=== PATIENT | male | born 1975 | race Caucasian/White ===

== ENCOUNTER 2018-11-08 08:56 | Emergency (ER) | payer SELFPAY ==
[~2018-11-08] VITALS: Ht 165.1 cm; Wt 85.0 kg
[2018-11-08 09:01] VITALS: BP 141/94
--- NOTE | 2018-11-08 09:08 | NUR ---
Patient ambulated to bed 9. RN evaluating patient at bedside.
--- NOTE | 2018-11-08 09:13 | NUR ---
Dr. Garcia evaluating patient at bedside.
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
--- NOTE | 2018-11-08 09:21 | NUR ---
pt left for x-ray per tech via wheelchair.
--- NOTE | 2018-11-08 10:01 | NUR ---
Patient discharged with v/s stable. Written and verbal after care instructions given and explained. Patient verbalized understanding. Ambulatory with steady gait. All questions addressed prior to discharge. Advised to follow up with PMD.
== END 2018-11-08 10:00 | disposition home or self-care (01) ==
LOC: MED 08:56
DX: M79.671 Pain in right foot (principal); R03.0 Elevated blood-pressure reading, without diagnosis of hypertension; F17.210 Nicotine dependence, cigarettes, uncomplicated; Z71.6 Tobacco abuse counseling; X50.1XXA Overexertion from prolonged static or awkward postures, initial encounter; Y93.02 Activity, running; Y92.89 Other specified places as the place of occurrence of the external cause; Y99.8 Other external cause status
CPT/HCPCS: 73630; 99283

== ENCOUNTER 2020-03-08 08:57 | Emergency (ER) | payer SELFPAY ==
[~2020-03-08] VITALS: Ht 165.1 cm; Wt 81.6 kg
--- NOTE | 2020-03-08 08:59 | NUR ---
Patient ambulated to bed 7
[2020-03-08 09:00] VITALS: BP 159/101
--- NOTE | 2020-03-08 09:05 | NUR ---
c/o unable to retract foreskin back to normal ---
--- NOTE | 2020-03-08 09:24 | NUR ---
at bedside with pt
[2020-03-08 10:00] LABS: ANION GAP 11.5 (8-16); CARBON DIOXIDE 29.5 mmol/L (21-32); CREATININE 0.8 mg/dL (0.6-1.3)
[2020-03-08 10:23] VITALS: BP 145/94
--- NOTE | 2020-03-08 10:23 | NUR ---
Patient discharged with v/s stable. Written and verbal after care instructions given and explained. Patient alert, oriented and verbalized understanding of instructions. Ambulatory with to car. All questions addressed prior to discharge. ID band removed. Patient advised to follow up with PMD. Rx of metformin, bacitracin, clotrimazole given. Patient educated on indication of medication including possible reaction and side effects. Opportunity to ask questions provided and answered.
[2020-03-08 10:53] LABS: APPEARANCE,URINE CLEAR (CLEAR); BILIRUBIN,URINE NEGATIVE (NEGATIVE); BLOOD, URINE TRACE-I (NEGATIVE); COLOR,URINE YELLOW (YELLOW); LEUKOCYTE ESTERASE ,URINE NEGATIVE (NEGATIVE); NITRITE, URINE NEGATIVE (NEGATIVE); UGLUCOSE 3+ (NEGATIVE)
[2020-03-08 11:04] LABS: RBC,URINE 0-5 /HPF (0-5); WBC,URINE 0-5 /HPF (0-5)
== END 2020-03-08 10:23 | disposition home or self-care (01) ==
LOC: MED 08:57
DX: R60.0 Localized edema (principal); N47.7 Other inflammatory diseases of prepuce; E11.65 Type 2 diabetes mellitus with hyperglycemia; R20.2 Paresthesia of skin; R03.0 Elevated blood-pressure reading, without diagnosis of hypertension
CPT/HCPCS: 36415; 80048; 81001; 99283

== ENCOUNTER 2021-01-12 08:46 | Emergency (ER) | payer MEDICAID ==
[~2021-01-12] VITALS: Ht 165.1 cm; Wt 72.6 kg
[2021-01-12 08:51] VITALS: BP 120/87
[2021-01-12] MEDS ORDERED: LIDOCAINE MPF 1% 10 MG/ML VIAL INJ ONE (09:25)
[2021-01-12] MEDS ORDERED: KETOROLAC 60 MG/2 ML VIAL IM ONE (10:15)
[2021-01-12] MEDS ORDERED: NAPR-1704 PO (10:45)
[2021-01-12 10:54] VITALS: BP 120/87
== END 2021-01-12 10:55 | disposition home or self-care (01) ==
LOC: MED 08:46
DX: M25.511 Pain in right shoulder (principal); F17.210 Nicotine dependence, cigarettes, uncomplicated; Z71.6 Tobacco abuse counseling
CPT/HCPCS: 20552; 96372; 99284; J1885; J2001

== ENCOUNTER 2021-11-28 12:27 | Emergency (ER) | payer MEDICAID ==
[~2021-11-28] VITALS: Ht 165.1 cm; Wt 61.7 kg
[~2021-11-28 12:27] MED LIST: NAPR-1704 PO
[2021-11-28 12:36] VITALS: BP 137/85
--- NOTE | 2021-11-28 12:50 | NUR ---
PT AMBULATED TO ER BED 1 WITH A STEADY GAIT.
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
--- NOTE | 2021-11-28 13:00 | NUR ---
LAB AT PT BEDSIDE
--- NOTE | 2021-11-28 13:06 | NUR ---
RT AT PT BEDSIDE
[2021-11-28 13:12] LABS: BASOPHILS % (AUTO) 0.4 % (0.0-2.0); EOSINOPHILS # (AUTO) 0.1 K/uL (0-0.4); EOSINOPHILS % (AUTO) 2.3 % (0.0-4.0); HEMATOCRIT 40.9 % (36-52); HEMOGLOBIN 14.1 g/dL (12.0-18.0); LYMPHOCYTES # (AUTO) 1.6 K/uL (2.0-11.5); LYMPHOCYTES % (AUTO) 31.3 % (20.5-51.1); MEAN CORPUSCULAR HEMOGLOBIN 33 pg (27-31); MEAN CORPUSCULAR HGB CONC 34 g/dL (33-37); MEAN CORPUSCULAR VOLUME 94.7 fL (80-94); MONOCYTES # (AUTO) 0.4 K/uL (0.8-1.0); MONOCYTES % (AUTO) 8.4 % (1.7-9.3); NEUTROPHILS % (AUTO) 57.6 % (42.2-75.2); PLATELET COUNT (AUTO) 124 K/uL (140-450); RED BLOOD CELL COUNT(AUTO) 4.32 MIL/uL (4.20-6.10); RED CELL DISTRIBUTION WIDTH 13.3 % (11.6-13.7); WHITE BLOOD COUNT (AUTO) 5.2 K/uL (4.8-10.8)
--- NOTE | 2021-11-28 13:27 | NUR ---
URINE COLLECTED AND HANDED TO LAB
[2021-11-28 13:44] LABS: ALBUMIN 3.3 g/dL (3.4-5.0); ANION GAP 12.8 (8-16); CARBON DIOXIDE 26.5 mmol/L (21-32); CREATININE 1.1 mg/dL (0.6-1.3); POTASSIUM 4.3 mmol/L (3.5-5.1); TOTAL BILIRUBIN 0.6 mg/dL (0.0-1.0)
[2021-11-28 13:50] VITALS: BP 127/89
[2021-11-28] MEDS ORDERED: NACL 0.9% 1,000 ML IV ONE (13:50)
[2021-11-28] MEDS ORDERED: INSULIN REGULAR, HUMAN 100 UNIT/ML VIAL IVP ONE (14:05)
[2021-11-28 14:46] LABS: APPEARANCE,URINE CLEAR (CLEAR); BILIRUBIN,URINE NEGATIVE (NEGATIVE); BLOOD, URINE NEGATIVE (NEGATIVE); COLOR,URINE YELLOW (YELLOW); LEUKOCYTE ESTERASE ,URINE NEGATIVE (NEGATIVE); NITRITE, URINE NEGATIVE (NEGATIVE); PH,URINE 5.5 (5.0-9.0); UGLUCOSE 3+ (NEGATIVE)
[2021-11-28] MEDS ORDERED: CEPH-588 PO (16:07)
[2021-11-28] MEDS ORDERED: IBUP-2213 PO (16:07)
--- NOTE | 2021-11-28 16:48 | NUR ---
IV removed, catheter intact and site benign. Applied folded 4x4 gauze and tape to stop bleeding.
--- NOTE | 2021-11-28 16:50 | NUR ---
Patient discharged with v/s stable. Written and verbal after care instructions ABOUT CELLULITIS AND HYPERGLYCEMIA given and explained. Patient alert, oriented and verbalized understanding of instructions. Ambulatory with steady gait. All questions addressed prior to discharge. ID band removed. Patient advised to follow up with PMD. Rx of KEFLEX AND IBUPROFEN given. Patient educated on indication of medication including possible reaction and side effects. Opportunity to ask questions provided and answered.
== END 2021-11-28 16:50 | disposition home or self-care (01) ==
LOC: MED 12:27
DX: L03.011 Cellulitis of right finger (principal); E11.65 Type 2 diabetes mellitus with hyperglycemia; Z79.899 Other long term (current) drug therapy
CPT/HCPCS: 36415; 36600; 71045; 73140; 80053; 81003; 82803; 82948; 83605; 83880; 84484; 85025; 87040; 87086; 93005; 96361; 96374; 99285; J1815; J7030

== ENCOUNTER 2022-02-14 06:55 | Emergency (ER) | payer MEDICAID ==
[~2022-02-14] VITALS: Ht 165.1 cm; Wt 60.8 kg
[~2022-02-14 06:55] MED LIST changes: +CEPH-588 PO; +IBUP-2213 PO
[2022-02-14 06:58] VITALS: BP 135/93
--- NOTE | 2022-02-14 07:55 | NUR ---
PATIENT LEFT WITHOUT BEING SEEN BY DR. AC. NO FURTHER CARE PROVIDED FOR PATIENT.
== END 2022-02-14 07:55 | disposition left against medical advice (07) ==
LOC: MED 06:55
DX: J02.9 Acute pharyngitis, unspecified (principal); Z53.21 Procedure and treatment not carried out due to patient leaving prior to being seen by health care provider

== ENCOUNTER 2022-03-16 23:00 | Emergency (ER) | payer MEDICAID ==
--- NOTE | 2022-03-16 23:09 | NUR ---
CALLED IN LOBBY AND OUTSIDE FOR TRIAGE, NO ANSWER.
--- NOTE | 2022-03-16 23:19 | NUR ---
CALLED IN LOBBY AND OUTSIDE FOR TRIAGE, NO ANSWER.
--- NOTE | 2022-03-16 23:25 | NUR ---
CALLED IN LOBBY AND OUTSIDE FOR TRIAGE, NO ANSWER.
--- NOTE | 2022-03-16 23:25 | NUR ---
CALLED PHONE ON FILE, WENT TO [employer]
== END 2022-03-16 23:09 | disposition left against medical advice (07) ==
LOC: MED 23:00
DX: S90.859A Superficial foreign body, unspecified foot, initial encounter (principal); Z53.21 Procedure and treatment not carried out due to patient leaving prior to being seen by health care provider; X58.XXXA Exposure to other specified factors, initial encounter; Y93.89 Activity, other specified; Y92.89 Other specified places as the place of occurrence of the external cause; Y99.8 Other external cause status